=== PATIENT | female | born 1975 | race Caucasian/White ===

== ENCOUNTER 2018-04-24 15:17 | Emergency (ER) | payer MEDICAID, OTHER ==
[~2018-04-24] VITALS: Ht 165.1 cm; Wt 121.8 kg
[2018-04-24] MEDS ORDERED: ondansetron/PF 4mg/2ml inj IV ONE ×2 (16:30→17:00)
[2018-04-24] MEDS ORDERED: normal saline 1000ML IV soln IVB ONE (16:30)
[2018-04-24] MEDS ORDERED: LORazepam 2 mg/ml vial IV ONE (17:00)
[2018-04-24 17:08] LABS: BASOPHILS # (AUTO) 0.1 X10'3 (0-0.2); BASOPHILS % (AUTO) 0.9 % (0-1); EOSINOPHILS # (AUTO) 0.3 X10'3 (0-0.9); EOSINOPHILS % (AUTO) 3.2 % (0-6); HEMATOCRIT 40.8 % (35.0-45.0); HEMOGLOBIN 13.6 g/dl (12.0-16.0); LYMPHOCYTES # (AUTO) 2.6 X10'3 (1.1-4.8); LYMPHOCYTES % (AUTO) 27.5 % (21-51); MEAN CORPUSCULAR HEMOGLOBIN 30.4 PG (27.0-31.0); MEAN CORPUSCULAR HGB CONC 33.3 % (33.0-36.5); MEAN CORPUSCULAR VOLUME 91.4 FL (78-98); MEAN PLATELET VOLUME 9.8 FL (7.4-10.4); MONOCYTES # (AUTO) 0.5 X10'3 (0-0.9); MONOCYTES % (AUTO) 5.5 % (2-12); NEUTROPHILS % (AUTO) 62.9 % (42-75); PLATELET COUNT 255 X10'3 (140-440); RED BLOOD COUNT 4.47 X10'6 (4.20-5.60); WHITE BLOOD COUNT 9.5 X10'3 (4.5-11.0)
[2018-04-24 17:24] LABS: ALANINE AMINOTRANSFERASE 20 U/L (12-78); ALBUMIN 3.3 G/DL (3.4-5.0); ALBUMIN/GLOBULIN RATIO 0.8 (1.1-1.5); ALKALINE PHOSPHATASE 70 IU/L (46-116); ANION GAP 10 (8-16); ASPARTATE AMINO TRANSFERASE 13 U/L (10-37); BILIRUBIN,TOTAL 0.5 MG/DL (0.1-1.0); BLOOD UREA NITROGEN 9 MG/DL (7-18); CALCIUM 8.8 MG/DL (8.5-10.1); CHLORIDE 102 MMOL/L (99-107); CREATININE 0.82 MG/DL (0.40-0.90); GLUCOSE 87 MG/DL (70-104); POTASSIUM 3.6 MMOL/L (3.5-5.1); SODIUM 139 MMOL/L (135-145); TOTAL CARBON DIOXIDE 27.4 MMOL/L (24-32); TOTAL PROTEIN 7.2 G/DL (6.4-8.2); eGFR 77 ML/MIN
[2018-04-24] MEDS ORDERED: AMOX-422 PO (19:07)
[2018-04-24 19:31] VITALS: BP 127/80
== END 2018-04-24 19:33 | disposition home or self-care (01) ==
LOC: ER 15:17
DX: J02.9 Acute pharyngitis, unspecified (principal); J32.9 Chronic sinusitis, unspecified; R42 Dizziness and giddiness; M79.622 Pain in left upper arm; R11.10 Vomiting, unspecified; Z88.5 Allergy status to narcotic agent; Z98.890 Other specified postprocedural states
CPT/HCPCS: 36415; 80053; 84484; 85025; 93005; 96361; 96374; 96375; 99285; J2060; J2405; J7030

== ENCOUNTER 2018-06-06 20:46 | Emergency (ER) | payer MEDICAID, OTHER ==
[~2018-06-06] VITALS: Ht 165.1 cm; Wt 120.0 kg
[2018-06-06 20:47] VITALS: BP 156/106
== END 2018-06-06 21:22 | disposition left against medical advice (07) ==
LOC: ER 20:47
DX: R07.89 Other chest pain (principal); F41.9 Anxiety disorder, unspecified; Z53.21 Procedure and treatment not carried out due to patient leaving prior to being seen by health care provider
CPT/HCPCS: 93005

== ENCOUNTER 2019-02-11 10:56 | Emergency (ER) | payer MEDICAID, OTHER ==
[~2019-02-11] VITALS: Ht 165.1 cm; Wt 120.5 kg
[2019-02-11 11:04] VITALS: BP 129/87
--- NOTE | 2019-02-11 11:19 | NUR ---
C/O RIGHT TOE AND ANKLE PAIN. PT STATES SHE FELL
[2019-02-11] MEDS ORDERED: ibuprofen tablet 400 MG TABLET PO ONE (11:40)
[2019-02-11] MEDS ORDERED: NAPR-56 PO (11:49)
== END 2019-02-11 12:20 | disposition home or self-care (01) ==
LOC: ER 10:56
DX: S93.491A Sprain of other ligament of right ankle, initial encounter (principal); Z88.5 Allergy status to narcotic agent; Z88.6 Allergy status to analgesic agent; Z79.899 Other long term (current) drug therapy; Z90.49 Acquired absence of other specified parts of digestive tract; Z98.890 Other specified postprocedural states; W20.8XXA Other cause of strike by thrown, projected or falling object, initial encounter; Y93.89 Activity, other specified; Y92.89 Other specified places as the place of occurrence of the external cause; Y99.8 Other external cause status
CPT/HCPCS: 29515; 73610; 99283

== ENCOUNTER 2019-07-12 09:13 | Emergency (ER) | payer MEDICAID ==
[~2019-07-12] VITALS: Ht 165.1 cm; Wt 125.0 kg
[2019-07-12] MEDS ORDERED: ibuprofen tablet 400 MG TABLET PO ONE (10:00)
[2019-07-12] MEDS ORDERED: IBUP-1984 PO (10:03)
[2019-07-12] MEDS ORDERED: AMOX-580 PO (10:03)
[2019-07-12 10:21] VITALS: BP 141/93
== END 2019-07-12 10:27 | disposition home or self-care (01) ==
LOC: ER 09:14
DX: J32.9 Chronic sinusitis, unspecified (principal); J06.9 Acute upper respiratory infection, unspecified; H92.03 Otalgia, bilateral; Z90.49 Acquired absence of other specified parts of digestive tract; Z98.890 Other specified postprocedural states; Z88.5 Allergy status to narcotic agent; Z79.899 Other long term (current) drug therapy
CPT/HCPCS: 99283

== ENCOUNTER 2020-02-17 18:28 | Emergency (ER) | payer MEDICAID ==
[~2020-02-17] VITALS: Ht 165.1 cm; Wt 120.0 kg
[2020-02-17 18:57] LABS: BASOPHILS # (AUTO) 0.1 X10'3 (0-0.2); EOSINOPHILS # (AUTO) 0.4 X10'3 (0-0.9); EOSINOPHILS % (AUTO) 3.1 % (0-6); HEMATOCRIT 41.1 % (35.0-45.0); HEMOGLOBIN 13.8 g/dl (12.0-16.0); LYMPHOCYTES % (AUTO) 23.7 % (21-51); MEAN CORPUSCULAR HEMOGLOBIN 30.6 PG (27.0-31.0); MEAN CORPUSCULAR HGB CONC 33.4 g/dL (33.0-36.5); MEAN CORPUSCULAR VOLUME 91.5 FL (78-98); MEAN PLATELET VOLUME 8.9 FL (7.4-10.4); MONOCYTES # (AUTO) 0.8 X10'3 (0-0.9); MONOCYTES % (AUTO) 6.3 % (2-12); NEUTROPHILS # (AUTO) 8.3 X10'3 (1.8-7.7); NEUTROPHILS % (AUTO) 65.9 % (42-75); PLATELET COUNT 269 X10'3 (140-440); RED CELL DISTRIBUTION WIDTH 13.4 % (11.5-14.5); WHITE BLOOD COUNT 12.5 X10'3 (4.5-11.0)
[2020-02-17 19:13] LABS: ALANINE AMINOTRANSFERASE 27 U/L (12-78); ALBUMIN 3.3 G/DL (3.4-5.0); ALBUMIN/GLOBULIN RATIO 0.7 (1.1-1.5); ALKALINE PHOSPHATASE 67 IU/L (46-116); ANION GAP 8 (8-16); ASPARTATE AMINO TRANSFERASE 16 U/L (10-37); BILIRUBIN,TOTAL 0.4 MG/DL (0.1-1.0); BLOOD UREA NITROGEN 7 MG/DL (7-18); BUN/CREATININE RATIO 7.6 (6.6-38.0); CHLORIDE 103 MMOL/L (99-107); CREATININE 0.92 MG/DL (0.40-0.90); GLUCOSE 96 MG/DL (70-104); POTASSIUM 3.7 MMOL/L (3.5-5.1); SODIUM 138 MMOL/L (135-145); TOTAL CARBON DIOXIDE 27.4 MMOL/L (24-32); TOTAL PROTEIN 7.9 G/DL (6.4-8.2); eGFR 67 ML/MIN
[2020-02-17] MEDS ORDERED: LORazepam 1 MG tablet PO ONE (20:00)
[2020-02-17] MEDS ORDERED: ketorolac trometh inj. 60 MG/2 ML VIAL IM ONE (20:00)
[2020-02-17] MEDS ORDERED: ketorolac trometh. 30mg/ml inj. IV ONE (20:10)
[2020-02-17 20:59] VITALS: BP 121/90
[2020-02-18] MEDS ORDERED: ketorolac trometh. 30mg/ml inj. IV SCH (02:00)
== END 2020-02-17 20:55 | disposition home or self-care (01) ==
LOC: ER 18:28
DX: R07.89 Other chest pain (principal); F41.9 Anxiety disorder, unspecified; F12.90 Cannabis use, unspecified, uncomplicated; Z90.49 Acquired absence of other specified parts of digestive tract; Z98.890 Other specified postprocedural states; Z88.5 Allergy status to narcotic agent
CPT/HCPCS: 36415; 71045; 80053; 83880; 84484; 85025; 93005; 96374; 99285; J1885

== ENCOUNTER 2020-05-01 18:08 | Emergency (ER) | payer MEDICAID ==
[~2020-05-01] VITALS: Ht 165.1 cm; Wt 127.3 kg
[2020-05-01] MEDS ORDERED: iohexol 350MG/ML 100ml bottle IV ONE (18:24)
--- NOTE | 2020-05-01 18:35 | NUR ---
PT TO CT
[2020-05-01] MEDS ORDERED: ketorolac tromethamine 15mg/ml inj. IV ONE (18:40)
[2020-05-01] MEDS ORDERED: normal saline 1000ml 1,000 ML IV ONE (18:40)
[2020-05-01] MEDS ORDERED: proCHLORperazine 10 MG/2 ml inj IV ONE (18:40)
--- NOTE | 2020-05-01 18:45 | NUR ---
PT BACK FROM CT .
[2020-05-01 18:49] LABS: WHITE BLOOD COUNT 10.4 X10'3 (4.5-11.0)
[2020-05-01 18:51] LABS: BASOPHILS # (AUTO) 0.1 X10'3 (0-0.2); EOSINOPHILS # (AUTO) 0.4 X10'3 (0-0.9); EOSINOPHILS % (AUTO) 3.7 % (0-6); HEMATOCRIT 39.7 % (35.0-45.0); HEMOGLOBIN 13.5 g/dl (12.0-16.0); MEAN CORPUSCULAR HEMOGLOBIN 31.1 PG (27.0-31.0); MEAN CORPUSCULAR HGB CONC 33.9 g/dL (33.0-36.5); MEAN CORPUSCULAR VOLUME 91.7 FL (78-98); MEAN PLATELET VOLUME 9.9 FL (7.4-10.4); MONOCYTES # (AUTO) 0.6 X10'3 (0-0.9); MONOCYTES % (AUTO) 5.4 % (2-12); NEUTROPHILS # (AUTO) 6.3 X10'3 (1.8-7.7); NEUTROPHILS % (AUTO) 60.9 % (42-75); PLATELET COUNT 263 X10'3 (140-440); RED BLOOD COUNT 4.33 X10'6 (4.20-5.60); RED CELL DISTRIBUTION WIDTH 13.7 % (11.5-14.5)
--- NOTE | 2020-05-01 18:51 | NUR ---
STROKE NURSE STATE THAT PATIENT IS NO LONGER A STROKE ALERT AND WILL BE TREATED A A MIGRAIN HEADACHE .
[2020-05-01 18:55] LABS: PARTIAL THROMBOPLASTIN TIME 28 SECONDS (22-32)
[2020-05-01 19:03] LABS: ALANINE AMINOTRANSFERASE 29 U/L (12-78); ALBUMIN 3.7 G/DL (3.4-5.0); ALBUMIN/GLOBULIN RATIO 0.9 (1.1-1.5); ALKALINE PHOSPHATASE 69 IU/L (46-116); ANION GAP 5 (8-16); ASPARTATE AMINO TRANSFERASE 18 U/L (10-37); BILIRUBIN,TOTAL 0.3 MG/DL (0.1-1.0); BLOOD UREA NITROGEN 16 MG/DL (7-18); CHLORIDE 102 MMOL/L (99-107); CREATININE 0.84 MG/DL (0.40-0.90); GLUCOSE 89 MG/DL (70-104); POTASSIUM 3.8 MMOL/L (3.5-5.1); SODIUM 137 MMOL/L (135-145); TOTAL CARBON DIOXIDE 29.9 MMOL/L (24-32); TOTAL PROTEIN 7.8 G/DL (6.4-8.2); TROPONIN I < 0.04 NG/ML (0.0-0.05); eGFR 74 ML/MIN
--- NOTE | 2020-05-01 19:41 | NUR ---
SPOKE WITH ABOUT PLAN OF CARE AFTER PATIENT GAVE PERMISSION . PT WILL BE WAITING IN THE CAR FOR HER ELVALUATION
[2020-05-01 20:23] VITALS: BP 143/83
== END 2020-05-01 20:21 | disposition home or self-care (01) ==
LOC: ER 18:08
DX: G43.909 Migraine, unspecified, not intractable, without status migrainosus (principal); R42 Dizziness and giddiness; R20.0 Anesthesia of skin; F12.90 Cannabis use, unspecified, uncomplicated; Z90.49 Acquired absence of other specified parts of digestive tract; Z98.890 Other specified postprocedural states; Z88.8 Allergy status to other drugs, medicaments and biological substances; Z88.5 Allergy status to narcotic agent
CPT/HCPCS: 70450; 70496; 70498; 80053; 82948; 84484; 85025; 85610; 85730; 93005; 96361; 96374; 96375; 99285; J0780; J1885; J7030; Q9967

== ENCOUNTER 2020-11-07 09:23 | Day surgery (SDC) | payer MEDICAID ==
[2020-10-31 16:01] LABS: CLARITY,URINE CLOUDY (Clear); COLOR,URINE YELLOW (Yellow); GLUCOSE, URINE NEGATIVE (Neg); KETONES,URINE NEGATIVE (Neg); LEUKOCYTE ESTERASE ,URINE SMALL (Neg); NITRITES, URINE NEGATIVE (Neg); OCCULT BLOOD,URINE TRACE-INTACT (Neg); PH,URINE 5.5 (4.8-8.0); PROTEIN,URINE NEGATIVE (Neg); UROBILINOGEN,URINE 0.2 E.U/dL (0.2-1.0)
[2020-10-31 16:02] LABS: BASOPHILS # (AUTO) 0.1 X10'3 (0-0.2); BASOPHILS % (AUTO) 0.9 % (0-1); EOSINOPHILS # (AUTO) 0.4 X10'3 (0-0.9); LYMPHOCYTES # (AUTO) 2.6 X10'3 (1.1-4.8); LYMPHOCYTES % (AUTO) 21.8 % (21-51); MEAN CORPUSCULAR HEMOGLOBIN 30.4 PG (27.0-31.0); MEAN CORPUSCULAR VOLUME 92.3 FL (78-98); MEAN PLATELET VOLUME 9.9 FL (7.4-10.4); MONOCYTES # (AUTO) 0.7 X10'3 (0-0.9); MONOCYTES % (AUTO) 6.1 % (2-12); NEUTROPHILS % (AUTO) 68.2 % (42-75); PRE OP HEMATOCRIT 44.2 % (35.0-45.0); PRE OP HEMOGLOBIN 14.6 g/dL (12.0-16.0); PRE OP PLATELET COUNT 276 X10'3 (140-440); RED BLOOD COUNT 4.79 X10'6 (4.20-5.60); RED CELL DISTRIBUTION WIDTH 13.6 % (11.5-14.5)
[2020-10-31 16:05] LABS: UA COLLECTION TYPE NON-SPECIFIED
[2020-10-31 16:06] LABS: MUCUS STRANDS MANY /LPF (Neg); SQUAMOUS EPITHELIAL CELL,UR MANY /LPF (FEW)
[2020-10-31 16:07] LABS: TRANSITIONAL EPI CELLS,URINE FEW /HPF
[2020-10-31 16:08] LABS: CAL OXALATE CRYSTALS 4+ /HPF (NEGATIVE)
[2020-10-31 16:11] LABS: BACTERIA,URINE NONE SEEN /HPF (Neg); RBC,URINE 0-2 /HPF (0-2); YEAST MODERATE /HPF (NEGATIVE)
[2020-10-31 16:20] LABS: PRE OP INR 1.1 INR; PRE OP PROTIME 10.9 SECONDS (9.0-12.0)
[2020-10-31 16:25] LABS: ALBUMIN 3.4 G/DL (3.4-5.0); ALBUMIN/GLOBULIN RATIO 0.7 (1.1-1.5); ALKALINE PHOSPHATASE 76 IU/L (46-116); BLOOD UREA NITROGEN 6 MG/DL (7-18); BUN/CREATININE RATIO 9.2 (6.6-38.0); CALCIUM 8.9 MG/DL (8.5-10.1); CHLORIDE 104 MMOL/L (99-107); CREATININE 0.65 MG/DL (0.40-0.90); PRE OP ALT 33 U/L (30-65); PRE OP ANION GAP 7 (8-16); PRE OP AST 22 U/L (10-37); PRE OP BILIRUB, TOTAL 0.5 MG/DL (0.0-1.0); PRE OP GLUCOSE 86 MG/DL (70-104); PRE OP POTASSIUM 3.6 MMOL/L (3.4-5.1); PRE OP SODIUM 139 MMOL/L (135-145); TOTAL CARBON DIOXIDE 27.6 MMOL/L (24-32); eGFR > 90 ML/MIN
[2020-10-31 16:47] LABS: HCG SERUM QL NEGATIVE
[2020-11-07] VITALS (8 sets, daily range): BP systolic 124–146; BP diastolic 70–100
[~2020-11-07] VITALS: Ht 165.1 cm; Wt 122.7 kg
[~2020-11-07 09:23] MED LIST: AMOX-580 PO; ceFOXitin 2GM-NS 100mL ADDvant 100 ML IV ONE; famotidine 20mg tablet PO ONE; ringers solution, lacted 1,000 ML IV SCH
--- NOTE | 2020-11-07 09:40 | NUR ---
PT DENIES SMOKING BUT PER HISTORY VAPES MARIJUANA. Addendum: 11/07/20 at 1145 by Chantelle Chowdary RN Amended: Links added.
[2020-11-07] MEDS ORDERED: fentaNYL/PF 50MCG/1 ML 2ML syringe ONE (10:25)
[2020-11-07] MEDS ORDERED: propofol inj 20 ML IV ONE (10:25)
[2020-11-07] MEDS ORDERED: midazolam 1 mg/ML 2ml injection ONE (10:25)
[2020-11-07] MEDS ORDERED: sevoflurane 250ml liquid IH ONE (10:27)
[2020-11-07] MEDS ORDERED: ondansetron/PF 4mg/2ml inj IV PRN (10:30)
[2020-11-07] MEDS ORDERED: ringers solution, lacted 1,000 ML IV SCH (10:30)
[2020-11-07] MEDS ORDERED: morphine 2 MG/ML inj. syringe IV PRN (10:30)
[2020-11-07] MEDS ORDERED: morphine 4 MG/ML inj SYRINge IV PRN (10:30)
[2020-11-07] MEDS ORDERED: proCHLORperazine 10 MG/2 ml inj IV PRN (10:30)
[2020-11-07] MEDS ORDERED: meperidine/PF 25mg/ml syringe IV PRN ×2 (10:30)
[2020-11-07] MEDS ORDERED: dexamethasone sod phosphate 4mg/ml inj. ONE (10:45)
[2020-11-07] MEDS ORDERED: ondansetron/PF 4mg/2ml inj ONE (10:59)
--- NOTE | 2020-11-07 11:09 | NUR ---
Received from OR via , accompanied by Anesthesiologist DR PAL and report given by Anesthesiolgist. AWAKENS TO VOICE. VITALS STABLE. DRESSING DI. [place] PAIN.
[2020-11-07] MEDS: meperidine/PF 25mg/ml syringe IV PRN ×2 (11:36→11:55)
[2020-11-07] MEDS ORDERED: traMADol 50MG tablet PO ONE (11:55)
--- NOTE | 2020-11-07 12:29 | NUR ---
AWAKE AND ORIENTED. VITALS STABLE. DRESSING DI. STATES PAIN IMPROVING. HOME WITH HER SPOUSE AT THIS TIME.
== END 2020-11-07 12:29 | disposition home or self-care (01) ==
LOC: PAS 09:23
PROVIDERS: ATTEND Obstetrics & Gynecology
DX: R10.2 Pelvic and perineal pain (principal); D25.9 Leiomyoma of uterus, unspecified; F12.90 Cannabis use, unspecified, uncomplicated; F41.9 Anxiety disorder, unspecified; K21.9 Gastro-esophageal reflux disease without esophagitis; G43.909 Migraine, unspecified, not intractable, without status migrainosus; E66.9 Obesity, unspecified; Z68.42 Body mass index [BMI] 45.0-49.9, adult; Z79.899 Other long term (current) drug therapy; Z20.822 Contact with and (suspected) exposure to COVID-19; Z88.5 Allergy status to narcotic agent; Z88.8 Allergy status to other drugs, medicaments and biological substances; Z90.49 Acquired absence of other specified parts of digestive tract; Z98.890 Other specified postprocedural states
CPT/HCPCS: 36415; 58353; 80053; 81001; 84703; 85025; 85610; 85730; 86885; 86900; 86901; 93005; A4649; J0694; J1100; J2175; J2250; J2405; J2704; J3010; J7030; U0003; U0005; A4355; A4618; A6258; J7120

== ENCOUNTER 2020-11-18 22:15 | Emergency (ER) | payer MEDICAID ==
[~2020-11-18] VITALS: Ht 165.1 cm; Wt 124.5 kg
[~2020-11-18 22:15] MED LIST changes: -ceFOXitin 2GM-NS 100mL ADDvant 100 ML IV ONE; -famotidine 20mg tablet PO ONE; -ringers solution, lacted 1,000 ML IV SCH
[2020-11-18 22:59] LABS: BASOPHILS # (AUTO) 0.1 X10'3 (0-0.2); BASOPHILS % (AUTO) 0.6 % (0-1); EOSINOPHILS # (AUTO) 0.3 X10'3 (0-0.9); EOSINOPHILS % (AUTO) 2.7 % (0-6); HEMATOCRIT 40.8 % (35.0-45.0); HEMOGLOBIN 13.5 g/dl (12.0-16.0); LYMPHOCYTES # (AUTO) 3.3 X10'3 (1.1-4.8); LYMPHOCYTES % (AUTO) 26.8 % (21-51); MEAN CORPUSCULAR HEMOGLOBIN 30.4 PG (27.0-31.0); MEAN CORPUSCULAR HGB CONC 32.9 g/dL (33.0-36.5); MEAN CORPUSCULAR VOLUME 92.2 FL (78-98); MEAN PLATELET VOLUME 9.5 FL (7.4-10.4); MONOCYTES # (AUTO) 0.8 X10'3 (0-0.9); MONOCYTES % (AUTO) 6.4 % (2-12); NEUTROPHILS # (AUTO) 7.8 X10'3 (1.8-7.7); NEUTROPHILS % (AUTO) 63.5 % (42-75); PLATELET COUNT 274 X10'3 (140-440); RED BLOOD COUNT 4.43 X10'6 (4.20-5.60); RED CELL DISTRIBUTION WIDTH 13.5 % (11.5-14.5); WHITE BLOOD COUNT 12.2 X10'3 (4.5-11.0)
[2020-11-18 23:24] LABS: ALANINE AMINOTRANSFERASE 27 U/L (12-78); ALBUMIN 3.2 G/DL (3.4-5.0); ALBUMIN/GLOBULIN RATIO 0.8 (1.1-1.5); ALKALINE PHOSPHATASE 64 IU/L (46-116); ANION GAP 8 (8-16); ASPARTATE AMINO TRANSFERASE 11 U/L (10-37); BILIRUBIN,TOTAL 0.2 MG/DL (0.1-1.0); BLOOD UREA NITROGEN 10 MG/DL (7-18); BUN/CREATININE RATIO 8.3 (6.6-38.0); CALCIUM 8.8 MG/DL (8.5-10.1); CHLORIDE 102 MMOL/L (99-107); CREATININE 1.21 MG/DL (0.40-0.90); GLUCOSE 98 MG/DL (70-104); POTASSIUM 3.5 MMOL/L (3.5-5.1); SODIUM 139 MMOL/L (135-145); TOTAL CARBON DIOXIDE 29.4 MMOL/L (24-32); TOTAL PROTEIN 7.4 G/DL (6.4-8.2); eGFR 49 ML/MIN
[2020-11-19 02:54] VITALS: BP 130/85
[2020-11-19] MEDS ORDERED: normal saline 1000ml 1,000 ML IV ONE (03:10)
== END 2020-11-19 03:10 | disposition home or self-care (01) ==
LOC: ER 22:16
DX: R07.89 Other chest pain (principal); G43.909 Migraine, unspecified, not intractable, without status migrainosus; Z88.5 Allergy status to narcotic agent; Z79.899 Other long term (current) drug therapy
CPT/HCPCS: 36415; 71045; 80053; 83880; 84484; 85025; 93005; 99285; J7030

== ENCOUNTER 2021-07-23 12:58 | Emergency (ER) | payer MEDICAID ==
[~2021-07-23] VITALS: Ht 165.1 cm; Wt 128.6 kg
[2021-07-23 13:53] LABS: BASOPHILS # (AUTO) 0.1 X10'3 (0-0.2); BASOPHILS % (AUTO) 0.7 % (0-1); EOSINOPHILS # (AUTO) 0.2 X10'3 (0-0.9); EOSINOPHILS % (AUTO) 1.7 % (0-6); HEMATOCRIT 43.7 % (35.0-45.0); HEMOGLOBIN 14.5 g/dl (12.0-16.0); LYMPHOCYTES # (AUTO) 2.4 X10'3 (1.1-4.8); MEAN CORPUSCULAR HEMOGLOBIN 30.2 PG (27.0-31.0); MEAN CORPUSCULAR HGB CONC 33.3 g/dL (33.0-36.5); MEAN CORPUSCULAR VOLUME 90.9 FL (78-98); MEAN PLATELET VOLUME 9.2 FL (7.4-10.4); MONOCYTES # (AUTO) 0.7 X10'3 (0-0.9); MONOCYTES % (AUTO) 6.2 % (2-12); NEUTROPHILS # (AUTO) 8.6 X10'3 (1.8-7.7); NEUTROPHILS % (AUTO) 71.4 % (42-75); PLATELET COUNT 337 X10'3 (140-440); RED BLOOD COUNT 4.81 X10'6 (4.20-5.60)
[2021-07-23 14:06] LABS: ALANINE AMINOTRANSFERASE 29 U/L (12-78); ALBUMIN 3.2 G/DL (3.4-5.0); ALBUMIN/GLOBULIN RATIO 0.7 (1.1-1.5); ALKALINE PHOSPHATASE 72 IU/L (46-116); ANION GAP 6 (8-16); ASPARTATE AMINO TRANSFERASE 23 U/L (10-37); BILIRUBIN,TOTAL 0.4 MG/DL (0.1-1.0); BLOOD UREA NITROGEN 10 MG/DL (7-18); BUN/CREATININE RATIO 12.5 (6.6-38.0); CALCIUM 9.2 MG/DL (8.5-10.1); CHLORIDE 105 MMOL/L (99-107); GLUCOSE 103 MG/DL (70-104); LIPASE 70 U/L (73-393); POTASSIUM 3.9 MMOL/L (3.5-5.1); SODIUM 140 MMOL/L (135-145); TOTAL CARBON DIOXIDE 29.3 MMOL/L (24-32); TOTAL PROTEIN 7.8 G/DL (6.4-8.2); eGFR 78 ML/MIN
[2021-07-23 14:11] LABS: URINE HCG NEGATIVE (NEG)
[2021-07-23 14:18] LABS: CLARITY,URINE CLOUDY (Clear); COLOR,URINE YELLOW (Yellow); GLUCOSE, URINE NEGATIVE (Neg); KETONES,URINE NEGATIVE (Neg); LEUKOCYTE ESTERASE ,URINE NEGATIVE (Neg); NITRITES, URINE NEGATIVE (Neg); OCCULT BLOOD,URINE TRACE-INTACT (Neg); PH,URINE 5.5 (4.8-8.0); PROTEIN,URINE NEGATIVE (Neg); UROBILINOGEN,URINE 0.2 E.U/dL (0.2-1.0)
[2021-07-23 14:24] LABS: UA COLLECTION TYPE CLN CATCH MIDSTREAM
[2021-07-23 14:26] LABS: SQUAMOUS EPITHELIAL CELL,UR MANY /LPF (FEW)
[2021-07-23 14:27] LABS: MUCUS STRANDS FEW /LPF (Neg)
[2021-07-23 14:28] LABS: RBC,URINE 0-2 /HPF (0-2)
[2021-07-23 14:29] LABS: BACTERIA,URINE 2+ /HPF (Neg)
[2021-07-23] MEDS ORDERED: ondansetron/PF 4mg/2ml inj IV ONE (15:20)
[2021-07-23] MEDS ORDERED: normal saline 1000ml 1,000 ML IV ONE (15:20)
[2021-07-23] MEDS ORDERED: morphine 4 MG/ML inj SYRINge IV ONE (15:20)
[2021-07-23] MEDS ORDERED: BISA10SU64 RC (16:35)
[2021-07-23] MEDS ORDERED: POLY119P2 PO (16:35)
[2021-07-23] MEDS ORDERED: ONDA8TAB13 PO (16:43)
[2021-07-23 16:53] VITALS: BP 159/98
== END 2021-07-23 16:59 | disposition home or self-care (01) ==
LOC: ER 12:59
DX: K59.00 Constipation, unspecified (principal); R11.2 Nausea with vomiting, unspecified; G43.909 Migraine, unspecified, not intractable, without status migrainosus; F12.10 Cannabis abuse, uncomplicated; Z88.5 Allergy status to narcotic agent
CPT/HCPCS: 36415; 80053; 81001; 81025; 83690; 85025; 96361; 96374; 96375; 99284; J2270; J2405; J7030; 74176